=== PATIENT | male | born 1995 | race Two or more races ===

== ENCOUNTER 2017-12-22 03:00 | Emergency (ER) | payer OTHER ==
[2017-12-22] MEDS ORDERED: ACETAMINOPHEN 500 MG TAB PO ONE (05:51)
[2017-12-22] MEDS ORDERED: IBUPROFEN 200 MG TAB PO ONE (05:51)
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
[2017-12-22 06:28] VITALS: BP 125/72; PULSE 70; RESP 16; TEMP 98.1; O2SAT 95
== END 2017-12-22 06:27 | disposition home or self-care (01) ==
DX: S39.91XA Unspecified injury of abdomen, initial encounter (principal); W22.8XXA Striking against or struck by other objects, initial encounter